=== PATIENT | female | born 1980 | race Caucasian/White ===

== ENCOUNTER 2016-11-07 10:00 | Inpatient (IN) | payer OTHER ==
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
[2016-11-07] VITALS (14 sets, daily range): BP systolic 112–144; BP diastolic 62–84; PULSE 63–100; RESP 12–20; O2SAT 92–98
[~2016-11-07] VITALS: Ht 165.1 cm; Wt 82.0 kg
[~2016-11-07 10:00] MED LIST: Bacitracin 50,000 unit Inj IRRIGATION ONE; CeFAZolin Inj 2 GM in IV Premix 1 EACH IV ONE; DEXT10TA8 PO; LEVO100T6 PO; Lactated Ringer's 1,000 ML IV SCH; Thrombin Powder 5,000 Unit TOPICAL ONE; VENL75CA PO
[2016-11-07] MEDS ORDERED: Lactated Ringer's 1,000 ML IV ONE (11:07)
[2016-11-07 11:15] LABS: APPEARANCE,URINE CLEAR (CLEAR,HAZY); COLOR,URINE YELLOW (YELLOW)
[2016-11-07 11:16] LABS: OCCULT BLOOD,URINE NEGATIVE (NEGATIVE); UROBILINOGEN,URINE NORMAL (NORMAL)
[2016-11-07] MEDS ORDERED: CeFAZolin Inj 2 gm / 50mL D5W IV ONE (11:41)
[2016-11-07] MEDS ORDERED: Thrombin Powder 5,000 Unit TOPICAL ONE (12:35)
[2016-11-07] MEDS ORDERED: Bacitracin 50,000 unit Inj ONE (12:35)
[2016-11-07] MEDS ORDERED: Lactated Ringer's 1,000 ML IV SCH (12:49)
[2016-11-07] MEDS ORDERED: Lactated Ringer's 500 ML IV PRN (12:49)
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
[2016-11-07] MEDS ORDERED: Labetalol 5 mg/mL 4 mL Inj IV PRN (12:50)
[2016-11-07] MEDS ORDERED: fentaNYL-PF 50 mCg/mL 2 mL Inj IVPUSH PRN (12:50)
[2016-11-07] MEDS ORDERED: EPHEDrine Sulfate 50 mg/mL Inj IVPUSH PRN (12:50)
[2016-11-07] MEDS ORDERED: Atropine 0.4 mg/mL Inj IVPUSH PRN (12:50)
[2016-11-07] MEDS ORDERED: hydrALAZINE 20 mg/mL Inj IVPUSH PRN (12:50)
[2016-11-07] MEDS ORDERED: Phenylephrine 10,000 mCg/mL Inj IVPUSH PRN (12:50)
[2016-11-07] MEDS ORDERED: HYDROmorphone 1 mg/mL Inj IVPUSH PRN ×2 (12:50→15:50)
[2016-11-07] MEDS ORDERED: Acetaminophen IV 1,000 MG in IV Premix 1 EACH IV PRN (13:10)
--- NOTE | 2016-11-07 13:45 | DRSVH ---
PROCEDURE: X-RAY CERVICAL SPINE, 1 VIEW INDICATIONS: CERVICAL RADICULOPATHY,INTRAOPERATIVE LOCALIZATION TECHNIQUE: Single lateral view of the cervical spine acquired. COMPARISON: [facility], MR, MR CERVICAL SPINE WO CON, 08/15/2016, 19:41. FINDINGS: Lateral intraoperative images demonstrate surgical probes at the level of C5-C6 and C6-C7. IMPRESSION: Surgical probes at the level of C5-C6 and C6-C7. Dictated by: Marilee Santos M.D. on 11/07/2016 at 13:42 Approved by: aMrilee Santos M.D. on 11/07/2016 at 13:44
[2016-11-07] MEDS ORDERED: Dexamethasone 4 mg/mL Inj ONE (14:29)
[2016-11-07] MEDS ORDERED: Propofol 10,000 mCg/mL 20 mL Inj ONE (14:29)
[2016-11-07] MEDS ORDERED: Ondansetron 2 mg/mL 2 mL Inj ONE (14:29)
[2016-11-07] MEDS ORDERED: Rocuronium 10 mg/mL 5 mL Inj ONE (14:29)
[2016-11-07] MEDS ORDERED: fentaNYL-PF 50 mCg/mL 2 mL Inj ONE (14:29)
--- NOTE | 2016-11-07 15:23 | PCM.ANEP1 ---
Post Anesthesia Phase 1 PACU Phase 1 Assessment Date of Service: Nov 07, 2016 Vital Signs Vital Signs Date Time Temp Pulse Resp B/P Pulse Ox O2 Delivery O2 Flow Rate FiO2 11/07/16 10:25 36.7 63 16 124/79 95 Room Air Anesthetic Administered: GA Level of Alertness: Sleepy, easy to arouse ARMAS's with Equal Strength: Yes Pain: No Nausea or Vomiting: Yes Oxygen Delivery: Nasal Cannula Lungs: Clear to Auscultation, Normal Air Movement Dermatome Level: Full Sensation Complications: No Follow up Care: No Gaston Johnson MD Nov 07, 2016 15:23
[2016-11-07] MEDS ORDERED: hydrOXYzine Inj 50 MG/1 mL SDV IM PRN (15:25)
[2016-11-07] MEDS ORDERED: Promethazine Inj 12.5 MG in 0.9% Sodium Chloride-Pha MIX 100 ML IV PRN (15:25)
--- NOTE | 2016-11-07 15:44 | DRSVH ---
PROCEDURE: X-RAY CERVICAL SPINE, 1 VIEW INDICATIONS: CERVICAL SPINE SURGERY TECHNIQUE: Single lateral view of the cervical spine acquired. COMPARISON: [facility], CR, XR CERVICAL SPINE 1VW, 11/07/2016, 13:20. FINDINGS: Cross table lateral view of the cervical spine demonstrate anterior fusion at C6-C7, which is partially visualized. IMPRESSION: Partial visualization of the C6-C7 post surgical change. Dictated by: Marilee Santos M.D. on 11/07/2016 at 15:40 Approved by: Marilee Santos M.D. on 11/07/2016 at 15:43
[2016-11-07] MEDS: 0.9% Sodium Chloride 1,000 ML IV SCH (15:49)
[2016-11-07] MEDS ORDERED: Polyethylene Glycol (PEG) 17 Gm Powder PO PRN (15:50)
[2016-11-07] MEDS ORDERED: Ondansetron 2 mg/mL 2 mL Inj IVPUSH PRN ×3 (15:50→19:50)
[2016-11-07] MEDS ORDERED: Sodium Biphos-Phos 133 mL Enema RECTAL PRN (15:50)
[2016-11-07] MEDS ORDERED: Senna-Docusate 8.6-50 mg Tablet PO PRN (15:50)
[2016-11-07] MEDS ORDERED: Magnesium Hydroxide 10 mL Oral Concentration PO PRN (15:50)
--- NOTE | 2016-11-07 16:49 | NUR ---
POST OP Patient arrived to Rm 1003 on hospital bed, alert and oriented, slightly drowsy but able to answer questions and make needs known. On 4 LPM O2 via NC-98%, CPOX in place. DARSHANA drain to right anterior neck, soft collar in place around neck. States nausea comes and goes. Administered anti-emetic in PACU. Able to ARMAS, denies any numbness or tingling. C/o pain in neck and bilateral upper shoulders. Adjusted HOB for comfort and gave patient a flat pillow. Family in room with patient. Oriented to room. Care continues.
[2016-11-07] MEDS: hydrOXYzine Pamoate 25 mg Capsule PO PRN (17:36)
--- NOTE | 2016-11-07 19:03 | NUR ---
PAIN MGMT Patient verbalized pain and pressure in bilateral upper shoulders and neck. Medicated with hydroxyzine 50mg which was effective and making patient comfortable. Also complained of nausea, placed scopolamine patch behind L ear. About 30 mins later patient stated she was hungry and anxious for dinner.
[2016-11-07] MEDS: Benzocaine (Hurricaine) 20% Unit-Dose Spray MUC_MEMBRM PRN (20:18)
[2016-11-07] MEDS: Venlafaxine XR 75 mg ER24 Capsule PO SCH (20:19)
[2016-11-07] MEDS: Senna-Docusate 8.6-50 mg Tablet PO SCH (20:30)
[2016-11-07] MEDS: Benzocaine-Menthol Lozenge 2/Pkg MT PRN (21:43)
[2016-11-07] MEDS: Acetaminophen IV 1,000 MG in IV Premix 1 EACH IV SCH (23:25)
[2016-11-08] MEDS: CeFAZolin Inj 2 GM in IV Premix 1 EACH IV SCH ×2 (00:20→08:07)
--- NOTE | 2016-11-08 01:00 | OP ---
[address] [address] OPERATIVE REPORT PATIENT: VERONIKA DOUGLAS : 1980 MR#: [id number] ADMIT: 11/07/2016 JOB ID: [id number] DATE OF SURGERY: 11/07/2016 PREOPERATIVE DIAGNOSIS(ES): Chronic, resistant bilateral cervical radiculopathy secondary to cervical spondylosis with severe foraminal narrowing and extension of disc into both neural foramina. POSTOPERATIVE DIAGNOSIS(ES): Chronic, resistant bilateral cervical radiculopathy secondary to cervical spondylosis with severe foraminal narrowing and extension of disc into both neural foramina, with evidence of significant anterior central canal stenosis secondary to central disc protrusion. OPERATIVE PROCEDURE: 1. Microscopic anterior cervical diskectomy and removal of osteophytosis and bilateral foraminotomy, C6-C7. 2. Anterior body fusion, C6-C7, using carbon cage, autologous bone graft, OsteoAmp and bone marrow aspiration. 3. Mckeon cervical plate screw, C6-C7. 4. Bone marrow aspiration right iliac crest. SURGEON: Cody Sanchez MD MASTER SHEET CLERK: Catrachito Dang PA-C ANESTHESIA: General endotracheal. COMPLICATIONS: None. ESTIMATED BLOOD LOSS: Approximately 30 cc. DRAINS: #10 Canadian drain. FINDINGS AT TIME OF SURGERY: Extensive posterior osteophytosis and evidence of essential disc protrusion which was causing compression of the anterior cord. There was severe foraminal narrowing with a combination of discs and bony stenosis. Decompression of the central canal as well as bilateral foraminotomies were performed. After decompression, a low angle curette was placed through each C7 neural foramina. Anterior body fusion was performed using carbon cage, augmented with dynamic Mckeon cervical plates and screws at C6-C7. Intraoperative x-rays showed the plate was at C6-C7, but because of the patient's body habitus, the C6-C7 level could not be fully visualized. INDICATION: This is a 36-year-old female, who sustained on the job injury, has had onset of injury and has had significant neck and bilateral arm pain and numbness. The patient has undergone a long period of conservative therapy and continues to have persistent symptoms. She has had transforaminal steroid injection which provided temporary relief. She subsequently decided to proceed with surgery, and has decided for an anterior cervical diskectomy and fusion with plating of C6-C7. The indications, risks and complications of the procedure were explained to the patient. She acknowledged understanding and wanted to proceed. DESCRIPTION OF PROCEDURE: The patient was evaluated in the preop area. The C6-C7 level was marked on the patient's chest. The patient's history, examination, medications, allergies and labs were reviewed. She was then taken to the operating room where she underwent general endotracheal anesthesia without complications. She was given 2 g of Ancef. Adryan placed on the lower extremities. The patient had a shoulder roll placed. The patient's extremities were properly padded and positioned. The shoulders were gently taped to her side. Right anterior cervical area, as well as right superior iliac crest region, were then prepped and draped in the usual sterile fashion for anterior cervical diskectomy and fusion. After proper prepping and draping, the appropriate time-out in the OR was performed, confirming the patient's name, date of , planned procedure, and presence of appropriate instrumentation. The patient's LOIS, beta block, diabetic and MRSA status were reviewed. Antibiotic administration, DVT prophylaxis and appropriate imaging on the screen was confirmed. The skilled assistance of the PA-Anup, Catrachito Dang, was necessary for the successful completion of the case. He was essential for proper postioning, retraction of the esophagus and trachea, as well as general safety of the patient. After the time-out was completed, a curvilinear incision was made in the neck on the right side and carried down through the skin and subcutaneous tissue, down to the level of the platysma. Self-retaining retractors were placed. Platysma was opened using Bovie cautery, exposing the sternocleidomastoid and strap muscles. Using sharp and blunt dissection, the fascia between the two muscle groups was opened, with identification of the common carotid artery. Medial dissection was undertaken until the prevertebral fascia, anterolateral ligament and longus colli muscles were identified. Dissection was carried out superiorly and inferiorly, and bent spinal needles were then placed into what was felt to be the C5-C6 and C6-C7 levels. Intraoperative x-rays obtained, verifying that the upper needle was at C5-C6 and the lower needle was at C6-C7. The placement was verified by Radiology as well. The needles were removed, and the C6-C7 level was marked using Bovie cautery. Subperiosteal dissection of the longus colli muscle was undertaken. A Shadow-Line anterior retraction system was placed, allowing full exposure of the C6-C7 level, and 14 mm vertebral pins were then placed in the vertebral body of C6-C7. Disc space was opened using a 15 blade knife and maximally distracted. An operating microscope was brought into place. Routine diskectomy was performed using angled curettes, high-speed drill and Kerrison rongeur. There were extensive posterior osteophytes. These were drilled down and thinned, and removed. There was severe foraminal stenosis. Bilateral foraminotomies were performed using high-speed drill, curettes and Kerrison rongeur. After decompression, only a 0 angle curette could be placed down each neural foramina. The disc space was sequentially dilated up to 8 mm. Once diskectomy was completed, the posterior longitudinal ligament was taken down using angled curettes Kerrison rongeur to decompress the central canal. There was evidence of a central disc protrusion causing compression on the anterior cord. At that point, the closed thecal sac was covered with Surgicel gauze. After hemostasis was achieved, only a 0 angle curette could be placed down each neural foramina without difficulty. A #8 rasp was then tapped into the disk space. A #8 cage was then filled with autologous bone graft that came from the shavings during the bony decompression for the C6-C7 level, and mixed with OsteoAMP. Attention was then directed to the right iliac crest region. A small epifanio incision was made over the superior iliac crest. Bone marrow aspiration in the needle was then tapped into the superior iliac crest. Approximately 1 cc of bone aspirate was obtained and mixed with the autologous bone graft and OsteoAMP. This mixture was then packed into a #8 cage. The cage was then tapped into the interspace and countersunk at C6-C7. Exploration posterior to the cage using a blunt nerve hook revealed good potential space. Once the interbody graft was in good position, the distraction instrumentation was removed and the vertebral pins were removed. Bone bleeding was controlled using bone wax. Anterior osteophytes were drilled down and flattened. A Mckeon cervical plate was then placed between C6 and C7. It was then secured using 14 mm vertebral screws using the guide and drill. All 4 screws had excellent purchase. Once the screws were in place, they were then tightened using the final telephony engineer until titanium squeak was heard. The plastic spacer was removed. The wound was irrigated with bacitracin-containing saline. Hemostasis was achieved using 2-point cautery, Gelfoam and cottonoids. Once hemostasis was achieved, the construct was covered with a large piece of Surgicel gauze. The Shadow-Line retraction system was removed. Re-exploration was undertaken. There was noted to be major oozing. There appeared to be slight soft tissue oozing and surrounding tissue, which was easily coagulated. At that point, a #10 Canadian drain was placed deep into the wound after hemostasis was achieved, and brought out through a separate stab incision. The platysma and subcutaneous layer was then reapproximated using running 3-0 Vicryl suture. The subcutaneous layer was then closed using inverted 3-0 Vicryl suture, and the skin was then closed using 4-0 Vicryl suture in subcuticular fashion. The incision was then dry and cleaned followed by Steri-Strips. This was then covered with sterile Telfa dressing and secured using benzoin and paper tape, as well as drain dressing. The small epifanio incision was closed using Benzoin and Steri-Strips, covered with Telfa and 3-inch OpSite. A 3-inch soft collar was applied. The patient was then awakened, extubated, and then transferred to a stretcher and taken to the PAR in stable condition. The patient tolerated the procedure well without any major complications. All sponge and needle counts were correct x2. Estimated blood loss was approximately 30 cc. Since the construct could not be fully seen, it was planned to get a lateral C-spine in the X-Ray Department tomorrow. [facility]ITAL[facility]
[2016-11-08] MEDS: hydrOXYzine Pamoate 25 mg Capsule PO PRN ×2 (01:23→11:28)
[2016-11-08 03:07] VITALS: BP 120/71; PULSE 85; RESP 18; O2SAT 97
[2016-11-08] MEDS: 0.9% Sodium Chloride 1,000 ML IV SCH ×2 (03:47→10:01)
[2016-11-08] MEDS: Benzocaine-Menthol Lozenge 2/Pkg MT PRN ×3 (03:47→14:30)
[2016-11-08] MEDS: Acetaminophen IV 1,000 MG in IV Premix 1 EACH IV SCH ×2 (05:26→10:00)
[2016-11-08] MEDS: Benzocaine (Hurricaine) 20% Unit-Dose Spray MUC_MEMBRM PRN ×2 (05:31→10:29)
--- NOTE | 2016-11-08 06:30 | NUR ---
Pain NOC 194 pain 8: APAP 650mg po, valium 5mg po, 1x hurricaine spray 2139 pain 05/01 with emesis: phenergan 25mg po, dilauded IV, valium 5mg po, cepachol at bedside 0 pain 2: APAP 1000mg IV 0120 pain 10/30: percocet 10mg, vistaril 50mg 0530 pain 10/30: APAP 1000mg IV 0630 pain 10/30: Requesting oxy 5mg and valium 5mg
--- NOTE | 2016-11-08 06:38 | NUR ---
DARSHANA Drain Output Pt has minimal output from DARSHANA - approx 1 ml for [id number]
--- NOTE | 2016-11-08 06:44 | NUR ---
NOC Activity Pt remains in bed, pain with movement and repositioning. Pt ate soft food dinner and had pain with swallowing, subsequent emesis 400-700 ml. Phenergan effective antiemetic, given prior to hurricaine spray per pt request. Hurricaine spray given 1 spray at time at less than ordered dose due to available resources from pharmacy. IV apap given for pain mainteance, IV dilauded 1mg given once for breakthrough pain. Pt reports no arm numbness, headache, SOB or chest pain. Soft collar and DARSHANA drain in place. Care continues
[2016-11-08 07:58] VITALS: BP 112/70; PULSE 79; RESP 18; O2SAT 98
[2016-11-08] MEDS: Venlafaxine XR 75 mg ER24 Capsule PO SCH (08:07)
[2016-11-08] MEDS: Senna-Docusate 8.6-50 mg Tablet PO SCH (08:07)
--- NOTE | 2016-11-08 09:14 | PCM.DISURG ---
Surgical Discharge Instruction Date of Service Nov 08, 2016 Dates of Hospitalization Date of Hospital Admission Nov 07, 2016 at 16:30 Providers Admitting Physician: Cody Sanchez MD Primary Care Physician: Erika Cheung Attending Physician: Cody Sanchez MD Discharge Diagnosis Discharge Diagnosis Status post C6-7 anterior cervical discectomy and fusion, with cage, iliac crest bone marrow aspiration, & anterior cervical plating from C6-7 Post Operative diagnosis Status post C6-7 anterior cervical discectomy and fusion, with cage, iliac crest bone marrow aspiration, & anterior cervical plating from C6-7 Additional Instructions Discharge Instructions Anterior Cervical Discectomy and Fusion What is my recovery like? The hospital stay is usually overnight. After the surgery, you might have a sore throat. This is very common due to the retraction (moving) of the esophagus and trachea. The sore throat usually resolves in 1-2 weeks. Drinking lots of fluids will help improve the symptoms. The cervical collar should be worn at night and for comfort only during the day. On your postoperative follow- up appointments, your Doctor will perform X-rays to see how well everything is healing. What are my restrictions? You should not lift anything heavier than five pounds. Avoid excessive movements of your neck until instructed specifically by your Doctor. Can I Shower? You may shower when you go home. You must remove the outside dressing on the 7th day after surgery, or change dressing as needed if soiled or saturated ( replacing new sterile gauze & water proof dressing) otherwise leave alone. The small pieces of tape (steri-strips) directly on top of the incision may get wet. The steri-strips will fall off on their own. Can I drive? No, you should not drive until specifically given permission from your Doctor in a follow up appointment. Most Patient's can drive in 2-3 weeks if they are not taking narcotic pain medications or muscle relaxers. You may ride in a car, but should avoid trips longer than two hours in duration. When can I return work / sports? Your Doctor will discuss your return to work with you on your first postoperative follow-up appointment. Most patients may return to work within 2 weeks for sedentary jobs. More physically demanding jobs may require 3-6 months of healing before such work can be considered. When should I call the doctor? You should call your Doctor or go to the Emergency Department if you develop chest pain, oversedation, shortness of breath, a temperature greater than 101.5 F, severe uncontrolled pain or weakness, loss of bowel or bladder function, choking, swelling, lots or drainage, pus discharge or constipation. Instructions Regarding Comfort & Pain Medication Use: During the recovery period , even with the use of pain medication, you may experience pain at the site of surgery. You may also have the same type of pain you had before surgery. Please use your pain scale as a guide for taking your pain medication. When your pain is greater than 4 out of 10, or when your pain reaches your personal tolerable level of pain, take your pain medication as prescribed. Use your pain medication on an 'as needed' basis. This means if your pain level is within your tolerable level of pain you DO NOT & SHOULD NOT need to take the medication. As you get better, you will notice you can increase the time interval between doses and decrease the number of tablets you are taking, gradually taking less and less pain medication. Taking pain medication when it is not necessary (for example when your pain is tolerable or acceptable) can result in dangerous side effects and over- sedation. Signs and symptoms of over-sedation include: drowsiness, excessive sleeping, slow or difficult breathing, slurred speech, impaired thinking, confusion, impaired motor coordination. If you have any of these symptoms stop taking the medication and immediately contact your doctor. IF SYMPTOMS ARE LIFE THREATENING CALL 911. To decrease pain and swelling, frequently apply an ice pack for 20 min intervals with at least one hour off. When to take Acetaminophen for pain? If you don't have liver problems, allergies and/or Tylenol is not in your current pain medication. Take Extra Strength Tylenol 500mg 2 tabs by mouth every 6 hours as needed for pain. DO NOT EXCEED 8 TABS PER DAY. PLEASE HAVE FAMILY OR RECOVERY SPONSOR HOLD & DISPENSE YOUR PAIN & SPASM MEDICATIONS. Follow Up Plan Follow Up Plan Follow-up with physician store administrative assistant in outpatient neurosurgical clinic in 1 week for wound check. Follow-up Provider (F9): Catrachito Dang PA-C Additional Information Attending Statement All documentation reviewed & orders authorized by Dr. Cody Sanchez M.D. Catrachito Dang PA-C Nov 08, 2016 09:14
--- NOTE | 2016-11-08 09:24 | PCM.DC.SUR ---
Discharge Summary Date of Service: Nov 08, 2016 Date of Hospital Admission: Nov 07, 2016 at 16:30 Date of Operation(s): 11/07/2016 Date of Discharge: 11/08/2016 Diagnosis at Time of Discharge Status post C6-7 anterior cervical discectomy & fusion with cage, iliac crest bone marrow aspiration, & anterior cervical plating from C6-7 Problems: Operation C6-7 anterior cervical discectomy & fusion with cage, iliac crest bone marrow aspiration, & anterior cervical plating from C6-7 Brief History and Physical: Patient: Lory Ford Date of : 1980 Visit Type: Pre Op Visit Date: 10/23/2016 09:45 AM This 36 year old female presents for Preop C6-7 ACDF, Cage, BMA and & Plate. History of Present Illness: 1. Preop C6-7 ACDF, Cage, BMA, & Plate Lory Phan is a 36 year old female referred by Lapping Machine Tender Dr. Harrison Contreras M.D. with Primary Care Provider (PCP) Erika TSANG who presents today's date 10/23/2016 for a preoperative type of appointment concerning the decision for surgery involving C6-7 anterior cervical discectomy & fusion, with cage, iliac crest bone marrow aspiration, & anterior cervical plating from C6-7 secondary to a diagnosis of cervical radiculopathy & early myelopathy with related complaints of severe, intractable , and debilitating neck pain radiating to the left > right upper extremities with numbness, paresthesias, & mild difficulty with balance & bladder spasticity. The patient was last seen by Dr. Cody Sanchez M.D. on 09/12/2016 documenting follow-up after getting a new MRI scan of the cervical spine. She continues to have neck and bilateral arm pain left greater than right. She also has noticed recently that she is having a little bit difficulty with walking and balance which is a new finding. She also been having increasing neck pain and spasm. No recent changes in bladder or bowel dysfunction except for some increased urinary frequency. No progressive weakness. Numbness in both arms are persistent. According to Dr. Sanchez the patient has developed some early signs of cervical myelopathy & continued bilateral C7 radiculopathy. The new MRI scan showed progression of her now moderate-severe canal stenosis with anterior cord compression and C6-7. Dr. Sanchez continues to recommend anterior cervical decompression and fusion involving iliac crest bone marrow aspiration to aid in fusion with anterior cervical plating for stabilization of the arthrodesis. Dr. Sanchez & the patient discussed all the risks and benefits associated with the procedure as well as reasonable expectations with respect to surgical outcomes & the patient elected to proceed with surgery as planned. The patient denies related complete or acute loss of control of bowel or bladder function, saddle paresthesia or anesthesia. 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 The patient's related complaints have been a serious detriment to their happiness and activities of daily living. Having failed conservative treatment the patient presents today for their decision for surgery appointment involving C6-7 anterior cervical discectomy & fusion, with cage, iliac crest bone marrow aspiration, & anterior cervical plating from C6-7 for treatment of cervical radiculopathy & early myelopathy; related to severe, intractable, and debilitating neck pain radiating to the left > right upper extremities with numbness, paresthesias, & mild difficulty with balance & bladder spasticity. The procedure is scheduled to be performed by Dr. Cody Sanchez M.D. on 2016. Problem List: Problem Description Depression, unspecified depression type Social History (Reviewed, updated) 10/23/2016 Tobacco use reviewed. Preferred language is Welsh. The patient does not need an winter sports manager. 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 Smoking status: Former smoker. Smoking Status Use Status Type Smoking Status Years Used Total Pack Years no/never Former smoker Allergies: Ingredient Reaction Medication Name Comment MORPHINE Anaphylaxis SULFA (SULFONAMIDE ANTIBIOTICS) Trouble Breathing DIPHENHYDRAMINE Reviewed, no changes. Review of Systems System Neg/Pos Details MS Positive Back pain, Muscle weakness, Myalgia, Neck stiffness. Constitutional Negative Chills and fever. GI Negative Abdominal pain, constipation, diarrhea, nausea and vomiting. Respiratory Negative Dyspnea, apnea and wheezing. Endocrine Negative Weight gain and weight loss. Psych Negative Anxiety and depression. MS Negative Bone/joint symptoms. Cardio Negative Chest pain, irregular heartbeat/palpitations, leg swelling and pacemaker. Negative Dysuria, urge incontinence and urinary incontinence. Integumentary Negative Mrsa and rash. Luis Eduardo/Lymph Negative Blood clots. ENMT Negative Hearing loss. Neuro Negative Dizziness, headache and seizures. Eyes Negative Double vision and vision loss. Vital Signs Height Time ft in cm Last Measured Height Position % 9:05 AM 5.0 5.00 165.10 04/06/2016 Weight/BSA/BMI Time lb oz kg Context % BMI kg/m2 BSA m2 9:05 AM 178.20 80.830 dressed with shoes 29.65 Blood Pressure Time BP mm/Hg Position Side Site Method Cuff Size 9:05 AM 117/81 sitting left wrist automatic adult Temperature/Pulse/Respiration Time Temp F Temp C Temp Site Pulse/min Pattern Resp/ min 9:05 AM 98.0 36.7 90 regular Pain Scale Time Pain Score Method 9:05 AM 8/10 Numeric Pain Intensity Scale Measured By Time Measured by 9:05 AM Alex Stark MA Screening Summary:o The following were reviewed: tobacco use Physical Exam Exam Findings Details Comments Gen.: Well-developed well-nourished HEENT: Palpation of the neck reveals evidence of involuntary paraspinous muscle spasm. There is decreased range of motion of the neck. Positive Spurling sign on the left and right. Lhermitte's test was positive. Chest: Clear to percussion and auscultation. Cardiovascular: Regular rate and rhythm Abdomen: Soft nontender with normal bowel sounds. Extremity: 5/5 strength in the upper and lower extremites except for some give way weakness of triceps on the left. Numbness and C7 distribution bilaterally. Trace 1+ tricep bilaterally. 2+ biceps. There is some hyperreflexia of the lower extremity now being 3+ no obvious ankle clonus and Johanna sign is negative. Radiographic imaging: There has been progression of the disc protrusion at C6 7 causing moderate to severe canal stenosis possibly 8 mm. There is some anterior cord compression which is a new finding. Severe bilateral C7 foraminal narrowing. Assessment/Plan # Detail Type Description 1. Assessment Cervical radiculopathy (M54.12). 2. Assessment Preoperative examination (Z01.818). Patient Plan We including your Attending Surgeon have discussed the risks and benefits associated your scheduled procedure which you have verbally acknowledged understanding including but not limited to the possibility of an outcome that we are unable to predict or was not mentioned. 1. You are scheduled for a C6-7 anterior cervical discectomy & fusion, with cage, iliac crest bone marrow aspiration, & anterior cervical plating from C6-[address] Cody Sanchez M.D. at [facility] on 11/07/2016. 2. Check in time is 10:30 AM. Also please ignore instructions below if told otherwise by your preadmission nurse or if you do not take the medications listed below. 3. Nothing to eat after midnight the night before surgery. You may take all of your "approved" medications with small sips of water. Remember to take your a.m. hypertension medication if it is a beta violet and ends in "olol. Otherwise ask your doctor if you need to hold your a.m. hypertension medication. 4. No aspirin, ibuprofen, Naprosyn, or other NSAIDs starting 7 days prior to surgery. 5. Please stop Warfarin/Coumadin or other blood thinners such as Plavix, Aggrenox, or Xarelto 7 days prior to your surgical procedure and follow specific instructions from your prescribing provider. 6. Please stop Lovenox bridging in the morning one day prior to procedure. 7. Please stop Suboxone/Buprenorphine at least 4 days prior to procedure. 8. Go to the hospital today to get her preoperative testing done. Take the order form to the surgery desk on the second floor of the hospital, [facility] (main entrance next to the emergency entrance). I will notify you if there is any test results that require further workup prior to surgery. 9. Follow the instructions you were given today, use the cleansing cloths the night before as well as the morning of her surgery. 10. If you are prescribed inhalers, CPAP or BiPAP machines you use at home bring along with you to the hospital. 11. ONLY If you take medications for Diabetes: If you have an insulin pump continue lowest (typically night-time) basal rate into the a.m. If you do not have a pump check h your a.m. blood sugar and hold insulin if BS less than 100. If you are taking long-acting, intermediate acting (NPH) or 70/30 preparation : Take half on day of procedure. If you are taking ultra long-acting insulin such as glargine, Lantus either at night or in the a.m. continue as scheduled ( including day of surgery). If you take short acting regular insulin (insulin not delivered via pump) discontinue on day of procedure. 12. Please call if you have any questions before your surgery: [phone]. Today's instructions/counseling include(s) Pre-operative instructions given to the patient and or legal uniforms sales representative(s) orally and in writing. 13. Our office will contact you if there are any test results that require further workup prior to surgery. Provider Plan The patient's history and examination as well as radiological findings were reviewed with Cody Sanchez M.D. and conveyed the patient in detail. The findings are consistent with cervical radiculopathy & early myelopathy and are most likely the cause of the patient's severe, intractable, and debilitating neck pain radiating to the left > right upper extremities with numbness, paresthesias, & mild difficulty with balance & bladder spasticity. The patient has failed extensive conservative treatment for this condition. The treatment options were discussed with the patient. The options include attempt to live with the condition, reattempt conservative treatment, try a pain management intervention / injection or consider a surgical intervention. We are not extremely optimistic that further conservative treatment, pain management intervention and/or injection will adequately resolve the patient's symptoms of severe, intractable, and debilitating neck pain radiating to the left > right upper extremities with numbness, paresthesias, & mild difficulty with balance & bladder spasticity. Therefore we recommend C6-7 anterior cervical discectomy & fusion, with cage, iliac crest bone marrow aspiration, & anterior cervical plating from C6-7. The patient was provided/offered educational materials pertaining to their diagnosis and the above discussed procedure. We discussed the risks and benefits associated with this surgery. A spine model was used to explain the nature of this type of surgery. The risk of the required anesthesia was also mentioned including but not limited to organ failure such as heart attack, pneumonia and stroke even . The risk of this type of surgery was also mentioned. Including but not limited to an unsuccessful outcome, residual symptoms, odynophagia, dysphasia or sore throat, referred or radiating posterior spinal myofascial inflammatory pain or spasm, post operative instability, instrumentation failure, sensory changes, blood loss, blood clots, wound infection, spinal cord or nerve damage, CSF or lymph leak, damage to neighboring structures such as the recurrent laryngeal nerve, perforation of the esophagus or trachea, pseudoarthrosis, adjacent level disease, contraindication to MRI, Pieter's Syndrome, vision loss, voice change, resulting in temporary or permanent dysfunction, even disability, paralysis, and . The recovery of this type of surgery was also mentioned. The chances for improvement of the related cervical radiculopathy in the bilateral upper extremities at one year is 70-80%. The chances of improvement of unrelated local mechanical neck pain is 50%. This includes but is not limited to reasonable expectations for the treatment of myelopathy involving the surgical decompression of the cervical spinal cord; which will stop the progression of the patient's condition but cannot guarantee improvements in any associated physical complaints. The patient verbalized understanding all the risks and benefits, knowing that it is impossible to predict or guarantee every surgical outcome; and would like to proceed with the above discussed procedure anyways. Surgery is scheduled for 11/07/2016 The standard [facility] preoperative screening tests, medicine restrictions, and logistical protocols apply. Any preoperative testing is within normal limits to undergo the above discussed procedure unless otherwise noted in the medical record. Medications (added, continued or stopped this visit): Start Date Medication Directions Stop Date Adderall 30 mg tablet take 1 tablet by oral route every day before breakfast Effexor XR 75 mg capsule,extended release take 1 capsule by oral route every day with food Tirosint 100 mcg capsule take 1 capsule by oral route every day Counseling/Educational Factors: Counseling / educational factors reviewed. Counseling / educational factors reviewed. This is a visit of 60 minutes. 50 minutes were spent counseling. This document may have been created using voice recognition software or other electronic means and may contain inadvertent administrative executive errors. Provider: Catrachito KING 10/23/2016 10:55 AM Document generated by: Catrachito Dang 10/23/2016 10:54 AM CC Providers: Harrison Contreras [address] [place] [address]- Erika Cheung [address] [place] [place] [address]- Harrison Contreras [address] [place] [address]- [address] [place] [address] w w . s r c l i n i c s . o r g Hospital Course: Hospital Course: The patient was admitted through same day surgery and subsequently underwent a C6-7 anterior cervical discectomy & fusion with cage, iliac crest bone marrow aspiration, & anterior cervical plating from C6-7. The patient tolerated the procedure well. The patient was then was transferred to PACU and then to the OSC floor. The patient was admitted for postoperative pain control, PT/OT, supervised for addiction recovery & chronic pain co-morbidities with inpatient nurse monitoring, continuous pulse oximetry, and discharge planning. The Patient's overnight course was as expected with regards to the patient's comorbidities & nausea resolved with antiemetics. Currently the patient has complaints of mild surgical site pain, dysphagia, & moderate posterior referred myofascial inflammatory pain/spasm adequately controlled with minimal by mouth analgesics & muscle relaxants. There is significant improvement of the patient' s residual cervical radiculopathy symptoms. The patient denies headache, severe sore throat or dysphagia, chest pain, shortness of breath, abdominal pain, nausea, vomiting, constipation, diarrhea, or any new onset &/or location of pain, weakness or paresthesias aside from the surgical site. PHYSICAL EXAM This is a well developed, well nourished, female who is alert, cooperative, and appears to be in no acute distress with a pleasant affect & euthymic mood. Exam of the head is normocephalic. PERRL, EOMI, without facial droop, hearing grossly intact, nostrils patent, oral cavity and pharynx normal. Voice is within normal limits Exam or the heart reveals regular rate and rhythm without audible murmurs The lungs are clear to auscultation bilaterally. The abdomen is non- tender and non-distended. Exam of the anterior cervical surgical wound reveals that it is clean, dry, and intact; without signs of infection, inflammation, and/or hematoma. There is less than 30 mL output from surgical drain in the last 8 hour period. Gross exam of the extremities reveals strength & sensation are grossly intact within the patient's normal baseline limits except improve diminished sensation in the bilateral upper extremities. The patient was eventually able to get out of bed and ambulate within acceptable limits. Therapy services made recommendations for disposition. Flatus was appreciated and the patient was able to void without significant difficulty. The pain was gradually under control. The patient was afebrile on discharge. The patient's incision(s) was clean, dry and intact. The dressing was changed to the Surgeon's specifications. The output from the wound drain was less then 30cc's in an 8 hour period at discharge and therefore the drain was removed. The patient progressed well with rehabilitation and was subsequently discharged to home in stable condition. We also had a long discussion with regards to the patient's postoperative pain management and concern for her maintaining her drug addiction recovery. As agreed upon and the patient's preoperative appointment her mother or recovery sponsor will hold and dispense her medications & she will follow our standard postoperative pain management agreement. The patient verbally affirmed understanding when given clear instruction regarding the postoperative care and follow-up including but not limited to seeking immediate medical attention for chest pain, shortness of breath, oversedation, a temperature greater than 101.5 F, severe uncontrolled pain or weakness, loss of bowel or bladder function, choking, lots or drainage, pus discharge or constipation. All questions were answered. The patient underwent upright lateral C-spine x-ray today 11/08/2016 status post C6-7 ACDF, cage, & anterior cervical plating from C6-7 with stable fusion construct & good instrumentation alignment. Disposition: Home in stable condition. Levothyroxine (Levothyroxine) 100 Mcg Tablet 100 MCG PO DAILY (Reported) Venlafaxine ER (Effexor XR) 75 Mg Capsule 75 MG PO DAILY (Reported) Discharge Medications: POSTOPERATIVE PRESCRIPTIONS: NO EARLY REFILLS & FAMILY OR RECOVERY CENTER SHOULD HOLD & DISPENSE ALL POSTOPERATIVE PAIN & SPASM MEDICATIONS. 1. Percocet 5/325 mg take 1 tab by mouth every 6 hours when necessary pain dispense #40 2. Valium 5 mg take one-2 tabs by mouth every 8 hours when necessary spasm dispense #40 3. Phenergan 25 mg take 1 tab by mouth every 6 hours when necessary nausea dispensed #14 The patient was also instructed & confirmed by her prescribing PCP not to take her Adderall when she is taking postoperative pain & spasm medications. Attending Statement: All documentation and reviewed & orders authorized by Dr. Cody Sanchez M.D. copies to: Harrison Contreras MD; Erika Cheung Scott PA-C Nov 08, 2016 09:24
--- NOTE | 2016-11-08 09:47 | NUR ---
Evaluation completed. Please go to "Notes" then click on "Assessments and Notes" (bottom left corner of screen). Then select appropriate discipline tab on top of screen.
--- NOTE | 2016-11-08 10:35 | DRSVH ---
PROCEDURE: X-RAY CERVICAL SPINE, 1 VIEW INDICATIONS: S/P C6-7 ACDF, Cage, & Plate TECHNIQUE: Single lateral view of the cervical spine acquired. COMPARISON: [facility], CR, XR CERVICAL SPINE 1VW, 11/07/2016, 14:26. [facility], CR, XR CERVICAL SPINE 1VW, 11/07/2016, 13:20. FINDINGS: Bones: No fractures or dislocations to the T1 level. No suspicious bony lesions. This study repres ents the immediate postoperative evaluation after anterior discectomy and interbody fusion by anterio r plate and bilateral plate fixation screw is at C6-7, with interbody disc prosthesis material. Soft tissues: No prevertebral soft tissue swelling. IMPRESSION: Normal alignment established after discectomy and anterior interbody plate fusion with in terbody disc prosthesis. Dictated by: Catrachito Kirkpatrick M.D. on 11/08/2016 at 10:32 Approved by: Catrachito Kirkpatrick M.D. on 11/08/2016 at 10:34
--- NOTE | 2016-11-08 10:46 | NUR ---
Social Work - Screening/Discharge: Data: EMR reviewed. Pt is a 36 y/o female who was admitted for cervical region radiculopathy per H&P. Pt's insurance is [employer] and her PCP is Cody Sanchez MD. 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 SW met with Pt and explained role. Pt resides at home with her mom and dad where she remains independent. Pt drives and does not use any DME. SW discussed DPOA/ advanced directive, SW confirmed with pt that this has been completed. Pt's mom to provide transport home at discharge. PT cleared Pt to go home with no needs. SW provided phone number and plan on white board in room. No anticipated discharge needs. SW will continue to follow if needs arise. Assessment:Pt who is independent at baseline. Plan:Pt to discharge home today via POV. No anticipated discharge needs. SW will continue to follow if needs arise. TISHA Palumbo Addendum: 11/08/16 at 1051 by VERENICE MCKEON Amended: Links added.
--- NOTE | 2016-11-08 10:55 | NUR ---
DARSHANA Drain/Dressing Change DARSHANA drain had apx 1ml serous fluid in 8 hours. Per protocol DARSHANA drain was d/c'd intact. Bulky dressing was changed. Betadine placed over steri-strips and covered with telfa pad with tagaderm over. Wound was well approximated with no drainage and all steri strips intact.
--- NOTE | 2016-11-08 14:21 | NUR ---
Evaluation completed. Please go to "Notes" then click on "Assessments and Notes" (bottom left corner of screen). Then select appropriate discipline tab on top of screen.
--- NOTE | 2016-11-08 14:31 | NUR ---
Discharge Pt was d/c'd from room 1004 at 1431 via private vehicle home with mother. Pt rates pain at 5/10 pain medication given. Throat lozenges also given. All discharge teaching and instructions done with mother at bedside. Mother to handle all RX pain medications and narcotics at pt's request. PT and OT evaluations done. Pt to f/u with PA in 1 week. No items in the safe or in the pharmacy. IV d/c'd intact.
== END 2016-11-08 14:30 | disposition home or self-care (01) | DRG 473 ==
LOC: SAS 10:00 → OSC 16:30
PROVIDERS: ADMIT Neurological Surgery; ATTEND Neurological Surgery
PROC: 0RB30ZZ Excision of Cervical Vertebral Disc, Open Approach (ICD-10-PCS; 2016-11-07)
PROC: 07DR0ZZ Extraction of Iliac Bone Marrow, Open Approach (ICD-10-PCS; 2016-11-07)
PROC: 0RG20A0 Fusion of 2 or more Cervical Vertebral Joints with Interbody Fusion Device, Anterior Approach, Anterior Column, Open Approach (ICD-10-PCS; principal; 2016-11-07 12:30)
DX: M47.22 Other spondylosis with radiculopathy, cervical region (principal); F41.9 Anxiety disorder, unspecified; Z87.891 Personal history of nicotine dependence